=== PATIENT | male | born 1995 | race Caucasian/White ===

== ENCOUNTER 2020-03-08 13:51 | Emergency (ER) | payer SELFPAY ==
[~2020-03-08] VITALS: Ht 175.3 cm; Wt 99.8 kg
[2020-03-08 14:00] VITALS: BP_SYST 174
--- NOTE | 2020-03-08 15:29 | NUR ---
Patient to ER bed 07 to gown for evaluation. Side rails up.
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
--- NOTE | 2020-03-08 15:45 | NUR ---
Milady Ruiz at bedside examining patient
[2020-03-08] MEDS ORDERED: KETOROLAC TROMETHAMINE 30 MG VIAL IM ONE (16:00)
[2020-03-08 18:01] VITALS: BP_SYST 163
--- NOTE | 2020-03-08 18:01 | NUR ---
Patient given written and verbal discharge instructions and verbalizes understanding. ER MD discussed with patient the results and treatment provided. Patient in stable condition. ID arm band removed. Rx of Ibuprofen given. Patient educated on pain management and to follow up with PMD. Pain Scale 3/10. Opportunity for questions provided and answered. Medication side effect fact sheet provided.
== END 2020-03-08 18:01 | disposition home or self-care (01) ==
LOC: SED 13:51
DX: S82.831A Other fracture of upper and lower end of right fibula, initial encounter for closed fracture (principal); S01.01XA Laceration without foreign body of scalp, initial encounter; S51.011A Laceration without foreign body of right elbow, initial encounter; S20.211A Contusion of right front wall of thorax, initial encounter; S50.11XA Contusion of right forearm, initial encounter; V47.5XXA Car driver injured in collision with fixed or stationary object in traffic accident, initial encounter; Y93.89 Activity, other specified; Y92.89 Other specified places as the place of occurrence of the external cause; Y99.8 Other external cause status
CPT/HCPCS: 12002; 29505; 70450; 71046; 71110; 73090; 73590; 96372; 99284; J1885

== ENCOUNTER 2020-03-18 16:07 | Emergency (ER) | payer MEDICAID ==
[~2020-03-18] VITALS: Ht 177.8 cm; Wt 99.8 kg
--- NOTE | 2020-03-18 16:10 | NUR ---
Maribell cabrera in [facility] - 03/18/20 at [email or web address] Kang examining patient at bedside
[2020-03-18 16:14] VITALS: BP_SYST 147
--- NOTE | 2020-03-18 16:17 | NUR ---
Patient to ER bed H1 to gown for evaluation. Side rails up.
--- NOTE | 2020-03-18 16:18 | NUR ---
Dr Kang examining patient at bedside
--- NOTE | 2020-03-18 16:18 | NUR ---
Pt brought by self, A&Ox4, pt presents to ER for removal of 3 olivia on scalp, pt afebrile, no bleeding noted, skin pink and warm.
--- NOTE | 2020-03-18 16:21 | NUR ---
Dr Kang removing olivia at this time
--- NOTE | 2020-03-18 16:25 | NUR ---
Patient given written and verbal discharge instructions and verbalizes understanding. ER MD discussed with patient the results and treatment provided. Patient in stable condition. ID arm band removed. No Rx given. Patient educated on pain management and to follow up with PMD. Pain Scale 0/10. Opportunity for questions provided and answered. Medication side effect fact sheet provided.
[2020-03-18 16:26] VITALS: BP_SYST 142
== END 2020-03-18 16:25 | disposition home or self-care (01) ==
LOC: SED 16:07
DX: S01.01XD Laceration without foreign body of scalp, subsequent encounter (principal); X58.XXXD Exposure to other specified factors, subsequent encounter
CPT/HCPCS: 99281

== ENCOUNTER 2021-01-14 03:02 | Emergency (ER) | payer MEDICAID ==
[~2021-01-14] VITALS: Ht 175.3 cm; Wt 102.1 kg
[2021-01-14 03:13] VITALS: BP_SYST 153
[2021-01-14 03:59] LABS: BILIRUBIN,URINE NEGATIVE (NEGATIVE); BLOOD, URINE NEGATIVE (NEGATIVE); CLARITY/URINE CLEAR (CLEAR); COLOR,URINE YELLOW (YELLOW); GLUCOSE,URINE NEGATIVE (NEGATIVE); KETONES,URINE NEGATIVE (NEGATIVE); LEUKOCYTE ESTERASE ,URINE NEGATIVE (NEGATIVE); NITRITE, URINE NEGATIVE (NEGATIVE); PH,URINE 6.5 (5.0-8.0); PROTEIN URINE NEGATIVE (NEGATIVE); UROBILINOGEN,URINE 0.2 (0.2-1.0)
[2021-01-14 04:02] LABS: BASOPHILS # (AUTO) 0.1 K/uL (0.0-0.2); BASOPHILS % (AUTO) 1.4 % (0.0-2.0); EOSINOPHILS # (AUTO) 0.3 K/uL (0.0-0.4); EOSINOPHILS % (AUTO) 3.1 % (0.0-4.0); HEMATOCRIT 43.7 % (36-54); HEMOGLOBIN 14.8 g/dL (14.0-18.0); LYMPHOCYTES # (AUTO) 1.4 K/uL (1.0-5.5); LYMPHOCYTES % (AUTO) 15.4 % (20.5-51.5); MEAN CORPUSCULAR HEMOGLOBIN 31 pg (27-31); MEAN CORPUSCULAR HGB CONC 34 % (32-36); MEAN CORPUSCULAR VOLUME 90 fL (79.0-98.0); MONOCYTES # (AUTO) 0.8 K/uL (0.0-1.0); MONOCYTES % (AUTO) 8.8 % (1.7-9.3); NEUTROPHILS # (AUTO) 6.4 K/uL (1.8-7.7); NEUTROPHILS % (AUTO) 71.3 % (40.0-70.0); PLATELET COUNT (AUTO) 165 K/uL (130-430); RED BLOOD CELL COUNT(AUTO) 4.85 MIL/uL (4.2-6.2); RED CELL DISTRIBUTION WIDTH 14.6 % (9.0-15.0); WHITE BLOOD COUNT (AUTO) 8.9 K/uL (4.8-10.8)
[2021-01-14 04:15] LABS: ANION GAP 9 (5-15); CALCIUM 8.9 mg/dL (8.4-11.0); CHLORIDE 100 mmol/L (98-107); GLUCOSE 104 mg/dL (70-99); POTASSIUM 3.4 mmol/L (3.5-5.1); SODIUM SERUM 136 mmol/L (136-145); UREA NITROGEN, BLOOD 19 mg/dL (8-21)
[2021-01-14 04:23] LABS: ALANINE AMINOTRANSFERASE 100 U/L (12-78); ALBUMIN 4.3 g/dL (3.4-4.8); ASPARTATE AMINOTRANSFERASE 36 U/L (10-37); TOTAL BILIRUBIN 2.1 mg/dL (0.0-1.0)
[2021-01-14 04:27] LABS: C-REACTIVE PROTEIN QUANT < 0.2 mg/dL (0-0.5); GFR AFRICAN AMERICAN 133 mL/min (>90)
[2021-01-14] MEDS ORDERED: CYCL-10 PO (04:39)
[2021-01-14 04:42] LABS: ERYTHROCYTE SEDIMENTATION RATE 5 MM/HR (0-15)
[2021-01-14 04:46] VITALS: BP_SYST 153
== END 2021-01-14 04:46 | disposition home or self-care (01) ==
LOC: SED 03:02
DX: M54.6 Pain in thoracic spine (principal); M25.512 Pain in left shoulder; I10 Essential (primary) hypertension
CPT/HCPCS: 36415; 80053; 81003; 82962; 84484; 85025; 85651-TC; 86140; 93005; 99284

== ENCOUNTER 2021-07-27 03:35 | Emergency (ER) | payer OTHER, MEDICAID, SELFPAY ==
[~2021-07-27] VITALS: Ht 177.8 cm; Wt 108.0 kg
[~2021-07-27 03:35] MED LIST: CYCL10TA24 PO
[2021-07-27 03:50] VITALS: BP_SYST 156
[2021-07-27 04:16] VITALS: BP_SYST 152
== END 2021-07-27 04:16 | disposition home or self-care (01) ==
LOC: SED 03:35
DX: J02.9 Acute pharyngitis, unspecified (principal); R09.81 Nasal congestion; Z79.899 Other long term (current) drug therapy
CPT/HCPCS: 99281

== ENCOUNTER 2021-10-29 15:04 | Emergency (ER) | payer MEDICAID, OTHER, SELFPAY ==
[~2021-10-29] VITALS: Ht 175.3 cm; Wt 104.3 kg
--- NOTE | 2021-10-29 15:15 | NUR ---
Pt to Hallway #1. Pt c/o dropping 35lb weight on right big toe. There is 3/10 pain, swelling, and bleeding from right big toe nail. Pt is A&Ox4. Using crutches to ambulate. NKA. No known medical conditions. Bed in lowest position.
--- NOTE | 2021-10-29 15:20 | NUR ---
Dr. Finn at bedside.
[2021-10-29 15:31] VITALS: BP_SYST 132
--- NOTE | 2021-10-29 15:44 | NUR ---
Cleaned wound and placed wet to dry dressing.
[2021-10-29] MEDS ORDERED: BACITRACIN 1 GM OINT TP ONE (15:45)
[2021-10-29] MEDS ORDERED: IBUP-1971 PO (16:27)
[2021-10-29] MEDS ORDERED: HYDR-3917 PO (16:27)
--- NOTE | 2021-10-29 16:45 | NUR ---
Maribell cabrera in [facility] - 10/29/21 at 1647 by [email or web address] Dressed Helen Toe.Tx.w.Bacitracin & non-adherent gouze.
--- NOTE | 2021-10-29 16:45 | NUR ---
Right big toe dressed and pt has no c/o. VSS.
--- NOTE | 2021-10-29 16:47 | NUR ---
Correction: Dressed Left toe.
[2021-10-29 16:51] VITALS: BP_SYST 136
--- NOTE | 2021-10-29 16:52 | NUR ---
Patient given written and verbal discharge instructions and verbalizes understanding. ER MD discussed with patient the results and treatment provided. Patient in stable condition. ID arm band removed. Rx of Tad & Ibuprofen given. Patient educated on pain management and to follow up with PMD. Pain Scale . Opportunity for questions provided and answered. Medication side effect fact sheet provided.
== END 2021-10-29 16:52 | disposition home or self-care (01) ==
LOC: SED 15:04
DX: S90.112A Contusion of left great toe without damage to nail, initial encounter (principal); Z79.899 Other long term (current) drug therapy; W20.8XXA Other cause of strike by thrown, projected or falling object, initial encounter; Y93.89 Activity, other specified; Y92.89 Other specified places as the place of occurrence of the external cause; Y99.8 Other external cause status
CPT/HCPCS: 99283

== ENCOUNTER 2022-04-18 20:09 | Emergency (ER) | payer MEDICAID ==
[~2022-04-18] VITALS: Ht 177.8 cm; Wt 101.6 kg
[~2022-04-18 20:09] MED LIST changes: +HYDR-3917 PO; +IBUP-1971 PO
[2022-04-18 20:30] VITALS: BP_SYST 182
--- NOTE | 2022-04-18 22:12 | NUR ---
ER at bedside examining patient.
--- NOTE | 2022-04-18 22:40 | NUR ---
Patient to ER bed 5 to gown for evaluation. Side rails up. Report given to CRISTINA HECTOR(reg).
--- NOTE | 2022-04-18 22:45 | NUR ---
Assuming care for pt. Pt reports anxiety and sts he has a history of it but does not take meds. Denies any other med problems. Pt aaox4. RR even nonlabored. Vitals are WNL.
[2022-04-18] MEDS ORDERED: VIS25 PO (22:57)
[2022-04-18 23:32] VITALS: BP_SYST 122
== END 2022-04-18 23:34 | disposition home or self-care (01) ==
LOC: SED 20:09
DX: F41.9 Anxiety disorder, unspecified (principal); Z79.899 Other long term (current) drug therapy
CPT/HCPCS: 99283

== ENCOUNTER 2022-07-19 19:33 | Emergency (ER) | payer MEDICAID ==
[~2022-07-19] VITALS: Ht 177.8 cm; Wt 113.4 kg
[~2022-07-19 19:33] MED LIST changes: +VIS25 PO
[2022-07-19 19:43] VITALS: BP_SYST 182
[2022-07-19] MEDS ORDERED: VIS25 PO (23:25)
[2022-07-19 23:32] VITALS: BP_SYST 150
== END 2022-07-19 23:30 | disposition home or self-care (01) ==
LOC: SED 19:33
DX: F41.9 Anxiety disorder, unspecified (principal); Z79.899 Other long term (current) drug therapy
CPT/HCPCS: 99281

== ENCOUNTER 2022-12-08 20:35 | Emergency (ER) | payer OTHER, MEDICAID ==
[~2022-12-08] VITALS: Ht 175.3 cm; Wt 113.4 kg
[2022-12-08 20:49] VITALS: BP_SYST 208
--- NOTE | 2022-12-08 20:55 | NUR ---
Patient to ER bed HB1 to gown for evaluation. Side rails up. Report given to KRUNAL CELIS.
--- NOTE | 2022-12-08 20:55 | NUR ---
PT IS AA&OX4. AFEBRILE. NAD. RESP EVEN & UNALBORED. CAME IN [facility] HOME C/O MID CHEST 6/10 PRESSURE CHEST PAIN AFTER INHALING BLEACH A COUPLE OF HRS AGO. NKDA. -PMH. SURGICAL HX: APPENDECTOMY. AMBULATORY W/ STEADY GAIT. SAFE & HAZARD FREE ENVIRONEMNT PROVIDED.
--- NOTE | 2022-12-08 21:08 | NUR ---
Dr. Benitez at bedside examining the patient.
[2022-12-08 21:55] VITALS: BP_SYST 165
--- NOTE | 2022-12-08 22:00 | NUR ---
Patient given written and verbal discharge instructions and verbalizes understanding. ER MD discussed with patient the results and treatment provided. Patient in stable condition. ID arm band removed. NO Rx given. Patient educated on pain management and to follow up with PMD. Pain Scale 0/10. Opportunity for questions provided and answered. Medication side effect fact sheet provided.
== END 2022-12-08 22:03 | disposition home or self-care (01) ==
LOC: SED 20:35
DX: J68.9 Unspecified respiratory condition due to chemicals, gases, fumes and vapors (principal); F41.9 Anxiety disorder, unspecified; R07.9 Chest pain, unspecified; R06.02 Shortness of breath; Z79.899 Other long term (current) drug therapy
CPT/HCPCS: 71045; 93005; 99283

== ENCOUNTER 2023-10-02 00:43 | Inpatient (IN) | payer OTHER, MEDICAID ==
[~2023-10-02] VITALS: Ht 175.3 cm; Wt 126.3 kg
[2023-10-02 00:47] VITALS: BP_SYST 162; BP_SYST 192; PULSE 144; RESP 20; TEMP 98; O2SAT 96
[2023-10-02] MEDS ORDERED: AMMONIA 1 EA TOWELETTE INH ONE (01:00)
[2023-10-02 01:31] LABS: BASOPHILS # (AUTO) 0.1 K/uL (0.0-0.2); BASOPHILS % (AUTO) 0.8 % (0.0-2.0); EOSINOPHILS # (AUTO) 0.5 K/uL (0.0-0.4); EOSINOPHILS % (AUTO) 4.6 % (0.0-4.0); HEMATOCRIT 44.2 % (36-54); HEMOGLOBIN 15.2 g/dL (14.0-18.0); LYMPHOCYTES # (AUTO) 2.2 K/uL (1.0-5.5); LYMPHOCYTES % (AUTO) 20.4 % (20.5-51.5); MEAN CORPUSCULAR HEMOGLOBIN 33 pg (27-31); MEAN CORPUSCULAR HGB CONC 34 % (32-36); MEAN CORPUSCULAR VOLUME 96 fL (79.0-98.0); MONOCYTES # (AUTO) 0.8 K/uL (0.0-1.0); MONOCYTES % (AUTO) 7.9 % (1.7-9.3); NEUTROPHILS % (AUTO) 66.3 % (40.0-70.0); PLATELET COUNT (AUTO) 204 K/uL (130-430); RED CELL DISTRIBUTION WIDTH 14.9 % (9.0-15.0); WHITE BLOOD COUNT (AUTO) 10.5 K/uL (4.8-10.8)
[2023-10-02] MEDS: LORazepam 2 MG/ML VIAL IVP ONE (01:34)
[2023-10-02 01:39] LABS: PROTHROMBIN TIME 10.4 SECS (9.5-12.5)
[2023-10-02] MEDS ORDERED: MAGNESIUM SULFATE 1 GM/2 ML VIAL ONE (01:51)
[2023-10-02] MEDS ORDERED: FOLIC ACID 5 MG/ML VIAL IV ONE (01:51)
[2023-10-02] MEDS ORDERED: THIAMINE HCL 200 MG/2 ML VIAL ONE (01:51)
[2023-10-02 01:55] LABS: BILIRUBIN,DIRECT 0.7 mg/dL (0.0-0.3); CALCIUM 8.7 mg/dL (8.4-11.0); CREATININE 0.85 mg/dL (0.55-1.30); POTASSIUM 3.8 mmol/L (3.5-5.1); TOTAL BILIRUBIN 1.5 mg/dL (0.0-1.0)
[2023-10-02] MEDS ORDERED: MVI 10 ML VIAL IV ONE ×2 (01:56→01:58)
[2023-10-02] MEDS: FOLIC ACID 1 MG, THIAMINE HCL 100 MG, MAGNESIUM SULFATE 1 GM, MVI 10 ML in NACL 0.9% 1,... IV ONE (02:14)
[2023-10-02] MEDS: cloNIDine HCL 0.1 MG TABLET PO ONE (03:12)
[2023-10-02] MEDS: cloNIDine HCL 0.1 MG TABLET ONE (03:13)
[2023-10-02] MEDS ORDERED: FOLIC ACID 1 MG, THIAMINE HCL 100 MG, MAGNESIUM SULFATE 1 GM, MVI 10 ML in NACL 0.9% 1,... IV SCH (07:00)
[2023-10-02] MEDS: THIAMINE HCL 100 MG, MAGNESIUM SULFATE 1 GM in NS 100 ML IV SCH (09:40)
[2023-10-02] MEDS: FOLIC ACID 1 MG, MVI 10 ML in NACL 0.9% 1,000 ML IV SCH (10:30)
[2023-10-02] MEDS ORDERED: HYDROcodone/ACETAMIN 10-325 MG TAB PO PRN (10:45)
[2023-10-02] MEDS ORDERED: HYDROcodone/ACETAMIN 5-325 MG TAB (NORCO/ VICODIN) PO PRN (10:45)
[2023-10-02] MEDS ORDERED: ACETAMINOPHEN 325 MG TABLET PO PRN (10:45)
[2023-10-02] MEDS ORDERED: NALOXONE HCL 0.4 MG/ML AMP (NARCAN) IVP PRN ×2 (10:45)
[2023-10-02] MEDS ORDERED: ONDANSETRON HCL 4 MG/2 ML VIAL IVP PRN (10:45)
[2023-10-02 11:16] LABS: BASOPHILS # (AUTO) 0.1 K/uL (0.0-0.2); BASOPHILS % (AUTO) 0.6 % (0.0-2.0); EOSINOPHILS # (AUTO) 0.4 K/uL (0.0-0.4); EOSINOPHILS % (AUTO) 4.6 % (0.0-4.0); LYMPHOCYTES # (AUTO) 1.4 K/uL (1.0-5.5); LYMPHOCYTES % (AUTO) 15.4 % (20.5-51.5); MEAN CORPUSCULAR HEMOGLOBIN 33 pg (27-31); MEAN CORPUSCULAR HGB CONC 34 % (32-36); MEAN CORPUSCULAR VOLUME 96 fL (79.0-98.0); MONOCYTES # (AUTO) 0.9 K/uL (0.0-1.0); NEUTROPHILS # (AUTO) 6.4 K/uL (1.8-7.7); NEUTROPHILS % (AUTO) 69.4 % (40.0-70.0); PLATELET COUNT (AUTO) 181 K/uL (130-430); RED BLOOD CELL COUNT(AUTO) 4.29 MIL/uL (4.2-6.2); RED CELL DISTRIBUTION WIDTH 14.9 % (9.0-15.0); WHITE BLOOD COUNT (AUTO) 9.2 K/uL (4.8-10.8)
[2023-10-02] MEDS: LORazepam 2 MG/ML VIAL IVP PRN (11:54)
[2023-10-02 11:56] LABS: ALBUMIN 3.4 g/dL (3.4-4.8); CREATININE 0.75 mg/dL (0.55-1.30); POTASSIUM 3.8 mmol/L (3.5-5.1); TOTAL BILIRUBIN 1.9 mg/dL (0.0-1.0); TOTAL PROTEIN, SERUM 7.9 g/dL (6.4-8.3)
[2023-10-02] MEDS: NORMAL SALINE 5 ML DISP.SYRIN IVF SCH (14:00)
[2023-10-02] MEDS ORDERED: PANTOPRAZOLE SODIUM 40 MG/VIAL (PROTONIX) ONE (15:54)
[2023-10-02] MEDS: PANTOPRAZOLE SODIUM 40 MG/VIAL (PROTONIX) IVP ONE (16:05)
[2023-10-02 16:42] LABS: BARBITURATE, URINE NEGATIVE (NEG <=200); BENZODIAZEPINE, URINE POSITIVE (NEG <=150); CANNABINOID, URINE NEGATIVE (NEG <=50); COCAINE, URINE NEGATIVE (NEG <=150); METHAMPHETAMINES SCREEN,URINE NEGATIVE (NEG <=500); OPIATE, URINE NEGATIVE (NEG <=100); PHENCYCLIDINE SCREEN,URINE NEGATIVE (NEG <=25); UR TRICYCLIC ANTIDEPRESSANTS NEGATIVE (NEG <=300); URINE AMPHETAMINE NEGATIVE (NEG <=500); URINE METHADONE NEGATIVE (NEG <=200); URINE OXYCODONE SCREEN NEGATIVE (NEG <=100)
[2023-10-02 19:50] VITALS: BP_SYST 156; PULSE 85; RESP 20; TEMP 97.4; O2SAT 95
[2023-10-02 20:40] VITALS: BP_SYST 156; PULSE 85; RESP 20; TEMP 97.4; O2SAT 95
[2023-10-03 00:07] VITALS: BP_SYST 153; PULSE 86; RESP 18; TEMP 96.9; O2SAT 97
[2023-10-03 06:16] LABS: BASOPHILS # (AUTO) 0.1 K/uL (0.0-0.2); BASOPHILS % (AUTO) 0.8 % (0.0-2.0); EOSINOPHILS # (AUTO) 0.6 K/uL (0.0-0.4); EOSINOPHILS % (AUTO) 6.4 % (0.0-4.0); HEMATOCRIT 42.4 % (36-54); HEMOGLOBIN 14.6 g/dL (14.0-18.0); LYMPHOCYTES # (AUTO) 1.6 K/uL (1.0-5.5); LYMPHOCYTES % (AUTO) 17.5 % (20.5-51.5); MEAN CORPUSCULAR HEMOGLOBIN 33 pg (27-31); MEAN CORPUSCULAR HGB CONC 34 % (32-36); MEAN CORPUSCULAR VOLUME 95 fL (79.0-98.0); MONOCYTES # (AUTO) 0.9 K/uL (0.0-1.0); NEUTROPHILS # (AUTO) 5.9 K/uL (1.8-7.7); NEUTROPHILS % (AUTO) 65.3 % (40.0-70.0); PLATELET COUNT (AUTO) 178 K/uL (130-430); RED BLOOD CELL COUNT(AUTO) 4.45 MIL/uL (4.2-6.2); RED CELL DISTRIBUTION WIDTH 15.2 % (9.0-15.0)
[2023-10-03 06:24] LABS: ALBUMIN 3.5 g/dL (3.4-4.8); CALCIUM 9.2 mg/dL (8.4-11.0); CREATININE 0.73 mg/dL (0.55-1.30); POTASSIUM 3.8 mmol/L (3.5-5.1); TOTAL BILIRUBIN 2.3 mg/dL (0.0-1.0); TOTAL PROTEIN, SERUM 7.9 g/dL (6.4-8.3)
[2023-10-03 06:31] LABS: TOTAL IRON BIND. CAPACITY 386 ug/dL (250-450)
[2023-10-03 08:24] VITALS: BP_SYST 173; PULSE 102; RESP 20; TEMP 98.7; O2SAT 97
[2023-10-03] MEDS: PANTOPRAZOLE SODIUM 40 MG/VIAL (PROTONIX) IVP SCH (09:00)
[2023-10-03] MEDS ORDERED: cloNIDine HCL 0.1 MG TABLET PO PRN (10:15)
[2023-10-03 11:40] VITALS: O2SAT 97
[2023-10-03 12:10] VITALS: BP_SYST 159; PULSE 97; RESP 18; TEMP 97.3; O2SAT 97
[2023-10-03] MEDS: CARVEDILOL 12.5 MG TABLET (COREG) PO ONE (12:17)
[2023-10-03 16:50] VITALS: BP_SYST 137; PULSE 82; RESP 17; TEMP 98.2; O2SAT 96
[2023-10-03 19:50] VITALS: BP_SYST 128; PULSE 80; RESP 20; TEMP 97.9; O2SAT 98
[2023-10-03] MEDS: CARVEDILOL 12.5 MG TABLET (COREG) PO SCH (21:49)
[2023-10-04 00:36] VITALS: BP_SYST 149; RESP 18; TEMP 98; O2SAT 96
[2023-10-04 06:05] LABS: BASOPHILS # (AUTO) 0.1 K/uL (0.0-0.2); BASOPHILS % (AUTO) 0.7 % (0.0-2.0); EOSINOPHILS # (AUTO) 0.7 K/uL (0.0-0.4); EOSINOPHILS % (AUTO) 7.2 % (0.0-4.0); HEMATOCRIT 42.5 % (36-54); HEMOGLOBIN 14.5 g/dL (14.0-18.0); LYMPHOCYTES # (AUTO) 1.6 K/uL (1.0-5.5); LYMPHOCYTES % (AUTO) 16.1 % (20.5-51.5); MEAN CORPUSCULAR HEMOGLOBIN 33 pg (27-31); MEAN CORPUSCULAR HGB CONC 34 % (32-36); MEAN CORPUSCULAR VOLUME 96 fL (79.0-98.0); MONOCYTES # (AUTO) 0.9 K/uL (0.0-1.0); MONOCYTES % (AUTO) 9.3 % (1.7-9.3); NEUTROPHILS # (AUTO) 6.4 K/uL (1.8-7.7); NEUTROPHILS % (AUTO) 66.7 % (40.0-70.0); PLATELET COUNT (AUTO) 168 K/uL (130-430); RED BLOOD CELL COUNT(AUTO) 4.41 MIL/uL (4.2-6.2); RED CELL DISTRIBUTION WIDTH 14.7 % (9.0-15.0); WHITE BLOOD COUNT (AUTO) 9.6 K/uL (4.8-10.8)
[2023-10-04 08:00] VITALS: BP_SYST 131; PULSE 80; RESP 20; TEMP 97.7; O2SAT 96
[2023-10-04 08:06] LABS: ANTI NUCLEAR AB WITH REFLEX Negative (Negative)
[2023-10-04 08:23] LABS: ALBUMIN 3.6 g/dL (3.4-4.8); CALCIUM 8.4 mg/dL (8.4-11.0); CREATININE 0.66 mg/dL (0.55-1.30); POTASSIUM 3.9 mmol/L (3.5-5.1); TOTAL BILIRUBIN 2.5 mg/dL (0.0-1.0); TOTAL PROTEIN, SERUM 8.1 g/dL (6.4-8.3)
[2023-10-04 13:02] LABS: HEPATITIS A AB, IgM Negative (Negative); HEPATITIS B CORE AB, IgM Negative (Negative); HEPATITIS B SURFACE AG Negative (Negative); HEPATITIS C VIRUS AB Non Reactive (Non Reactive)
[2023-10-04 16:00] VITALS: BP_SYST 129; PULSE 74; RESP 18; TEMP 98; O2SAT 97
[2023-10-04 20:00] VITALS: BP_SYST 147; PULSE 77; RESP 18; TEMP 97; O2SAT 98
[2023-10-05 00:05] VITALS: BP_SYST 134; PULSE 79; RESP 18; TEMP 98.3
[2023-10-05 08:24] VITALS: BP_SYST 145; PULSE 87; RESP 18; TEMP 97.8; O2SAT 96
[2023-10-05 08:33] LABS: ALBUMIN 3.7 g/dL (3.4-4.8); BILIRUBIN,DIRECT 1.1 mg/dL (0.0-0.3); TOTAL BILIRUBIN 2.6 mg/dL (0.0-1.0); TOTAL PROTEIN, SERUM 8.3 g/dL (6.4-8.3)
[2023-10-05] MEDS ORDERED: COR12.5 PO (09:56)
[2023-10-05] MEDS ORDERED: MULT-1117 PO (09:56)
[2023-10-05] MEDS ORDERED: THIA100T70 PO (09:56)
[2023-10-05] MEDS ORDERED: PRO40 PO (09:56)
[2023-10-05] MEDS ORDERED: FOLI-43 PO (09:56)
[2023-10-05 15:06] LABS: ANTI-SMOOTH MUSCLE AB 3 Units (0-19)
[2023-10-05 15:57] VITALS: BP_SYST 146; PULSE 68; RESP 18; TEMP 98.1; O2SAT 97
[2023-10-05 15:58] VITALS: BP_SYST 146; PULSE 68; RESP 18; TEMP 98.1; O2SAT 97
== END 2023-10-05 16:30 | disposition home or self-care (01) | DRG 433 ==
LOC: SED 00:43 → SMU 02:24
PROVIDERS: ADMIT Preventive Medicine Preventive Medicine/Occupational Environmental Medicine; ATTEND Preventive Medicine Preventive Medicine/Occupational Environmental Medicine
DX: K70.10 Alcoholic hepatitis without ascites (principal); E72.20 Disorder of urea cycle metabolism, unspecified; F10.139 Alcohol abuse with withdrawal, unspecified; Z68.41 Body mass index [BMI] 40.0-44.9, adult; F41.9 Anxiety disorder, unspecified; Y90.9 Presence of alcohol in blood, level not specified; R74.01 Elevation of levels of liver transaminase levels; F17.200 Nicotine dependence, unspecified, uncomplicated; R73.9 Hyperglycemia, unspecified; I10 Essential (primary) hypertension; K76.0 Fatty (change of) liver, not elsewhere classified; E80.6 Other disorders of bilirubin metabolism; E66.01 Morbid (severe) obesity due to excess calories; Z79.899 Other long term (current) drug therapy; Z90.49 Acquired absence of other specified parts of digestive tract
CPT/HCPCS: 36415; 76376; 76700; 80048; 80053; 80074; 80076; 80307; 82140; 83516; 83540; 83550; 83690; 85025; 85610; 85730; 86038; 93005; 99285; C9113; J2060; J3411; J3475; J3490; J7030; Q9967

== ENCOUNTER 2023-11-02 14:50 | Emergency (ER) | payer OTHER, MEDICAID ==
[~2023-11-02] VITALS: Ht 175.3 cm; Wt 115.7 kg
[2023-11-02 14:50] VITALS: BP_SYST 135; PULSE 105; RESP 20; TEMP 101.5; O2SAT 96
[~2023-11-02 14:50] MED LIST changes: +COR12.5 PO; +FOLI-43 PO; +MULT-1117 PO; +PRO40 PO; +THIA100T70 PO
[2023-11-02] MEDS ORDERED: IBUPROFEN 800 MG TABLET ONE (15:06)
[2023-11-02 16:32] LABS: BASOPHILS # (AUTO) 0.1 K/uL (0.0-0.2); BASOPHILS % (AUTO) 0.5 % (0.0-2.0); EOSINOPHILS # (AUTO) 0.5 K/uL (0.0-0.4); EOSINOPHILS % (AUTO) 4.5 % (0.0-4.0); HEMATOCRIT 42.3 % (36-54); HEMOGLOBIN 14.7 g/dL (14.0-18.0); LYMPHOCYTES # (AUTO) 1.7 K/uL (1.0-5.5); LYMPHOCYTES % (AUTO) 15.2 % (20.5-51.5); MEAN CORPUSCULAR HEMOGLOBIN 32 pg (27-31); MEAN CORPUSCULAR HGB CONC 35 % (32-36); MEAN CORPUSCULAR VOLUME 93 fL (79.0-98.0); MONOCYTES # (AUTO) 1.2 K/uL (0.0-1.0); MONOCYTES % (AUTO) 11.5 % (1.7-9.3); NEUTROPHILS # (AUTO) 7.4 K/uL (1.8-7.7); NEUTROPHILS % (AUTO) 68.3 % (40.0-70.0); PLATELET COUNT (AUTO) 173 K/uL (130-430); RED BLOOD CELL COUNT(AUTO) 4.55 MIL/uL (4.2-6.2); RED CELL DISTRIBUTION WIDTH 14.1 % (9.0-15.0); WHITE BLOOD COUNT (AUTO) 10.9 K/uL (4.8-10.8)
[2023-11-02 16:38] LABS: CREATININE 1.03 mg/dL (0.55-1.30); POTASSIUM 4.1 mmol/L (3.5-5.1)
[2023-11-02 17:11] LABS: ALBUMIN 3.5 g/dL (3.4-4.8); BILIRUBIN,DIRECT 0.4 mg/dL (0.0-0.3); TOTAL BILIRUBIN 1.5 mg/dL (0.0-1.0); TOTAL PROTEIN, SERUM 8.2 g/dL (6.4-8.3)
[2023-11-02] MEDS ORDERED: OMEP20CA15 PO (17:48)
[2023-11-02 17:56] VITALS: BP_SYST 132; PULSE 100; RESP 17; TEMP 100.9; O2SAT 96
== END 2023-11-02 17:55 | disposition home or self-care (01) ==
LOC: SED 14:50
DX: K29.70 Gastritis, unspecified, without bleeding (principal); R10.13 Epigastric pain; Z79.899 Other long term (current) drug therapy
CPT/HCPCS: 36415; 80048; 80076; 82150; 83605; 83615; 83690; 85025; 99284

== ENCOUNTER 2023-12-02 13:04 | Emergency (ER) | payer OTHER, MEDICAID ==
[~2023-12-02] VITALS: Ht 175.3 cm; Wt 110.2 kg
[~2023-12-02 13:04] MED LIST changes: +OMEP20CA15 PO
[2023-12-02 13:36] VITALS: BP_SYST 141; PULSE 105; RESP 18; TEMP 99.9; O2SAT 95
[2023-12-02] MEDS: PANTOPRAZOLE SODIUM 40 MG TAB PO ONE (14:28)
[2023-12-02] MEDS: KETOROLAC TROMETHAMINE 60 MG/2 ML VIAL IM ONE (14:28)
[2023-12-02 14:32] LABS: BILIRUBIN,URINE NEGATIVE (NEGATIVE); BLOOD, URINE NEGATIVE (NEGATIVE); COLOR,URINE YELLOW (YELLOW); GLUCOSE,URINE NEGATIVE (NEGATIVE); KETONES,URINE NEGATIVE (NEGATIVE); LEUKOCYTE ESTERASE ,URINE NEGATIVE (NEGATIVE); NITRITE, URINE NEGATIVE (NEGATIVE); PH,URINE 6.5 (5.0-8.0); PROTEIN URINE NEGATIVE (NEGATIVE); UROBILINOGEN,URINE 0.2 (0.2-1.0)
[2023-12-02 14:36] LABS: CLARITY/URINE SLIGHTLY HAZY (CLEAR)
[2023-12-02 14:44] LABS: BASOPHILS # (AUTO) 0.1 K/uL (0.0-0.2); EOSINOPHILS # (AUTO) 0.2 K/uL (0.0-0.4); EOSINOPHILS % (AUTO) 1.8 % (0.0-4.0); HEMATOCRIT 39.7 % (36-54); HEMOGLOBIN 13.8 g/dL (14.0-18.0); LYMPHOCYTES # (AUTO) 1.3 K/uL (1.0-5.5); LYMPHOCYTES % (AUTO) 12.9 % (20.5-51.5); MEAN CORPUSCULAR HEMOGLOBIN 32 pg (27-31); MEAN CORPUSCULAR HGB CONC 35 % (32-36); MEAN CORPUSCULAR VOLUME 91 fL (79.0-98.0); MONOCYTES # (AUTO) 1.2 K/uL (0.0-1.0); MONOCYTES % (AUTO) 11.6 % (1.7-9.3); NEUTROPHILS # (AUTO) 7.6 K/uL (1.8-7.7); NEUTROPHILS % (AUTO) 72.7 % (40.0-70.0); PLATELET COUNT (AUTO) 155 K/uL (130-430); RED BLOOD CELL COUNT(AUTO) 4.36 MIL/uL (4.2-6.2); WHITE BLOOD COUNT (AUTO) 10.4 K/uL (4.8-10.8)
[2023-12-02 14:59] LABS: CALCIUM 9.1 mg/dL (8.4-11.0); CREATININE 0.98 mg/dL (0.55-1.30); POTASSIUM 4.1 mmol/L (3.5-5.1)
[2023-12-02 15:03] LABS: ALBUMIN 3.6 g/dL (3.4-4.8); BILIRUBIN,DIRECT 0.5 mg/dL (0.0-0.3); TOTAL PROTEIN, SERUM 8.3 g/dL (6.4-8.3)
[2023-12-02] MEDS ORDERED: ONDA-8 TL (15:41)
[2023-12-02] MEDS ORDERED: OMEP40CA20 PO (15:41)
[2023-12-02 15:52] VITALS: BP_SYST 163; PULSE 95; RESP 18; TEMP 99.6; O2SAT 99
== END 2023-12-02 15:52 | disposition home or self-care (01) ==
LOC: SED 13:04
DX: K29.20 Alcoholic gastritis without bleeding (principal); F41.9 Anxiety disorder, unspecified
CPT/HCPCS: 99285; 76705; 80076; 80048; 81001; 83690; 85025; 36415; 96372; 81003; J1885

== ENCOUNTER 2023-12-11 19:28 | Emergency (ER) | payer OTHER, MEDICAID ==
[~2023-12-11] VITALS: Ht 175.3 cm; Wt 113.4 kg
[~2023-12-11 19:28] MED LIST changes: +OMEP40CA20 PO; +ONDA-8 TL
[2023-12-11 19:43] VITALS: BP_SYST 157; PULSE 86; RESP 18; TEMP 98.6; O2SAT 97
[2023-12-11] MEDS ORDERED: CHLO25CA11 PO (20:18)
[2023-12-11] MEDS ORDERED: HYDR30CR79 TP (20:18)
[2023-12-11 20:30] VITALS: TEMP 98.6; O2SAT 98
[2023-12-11 20:40] VITALS: BP_SYST 157; PULSE 78; RESP 20
== END 2023-12-11 20:30 | disposition home or self-care (01) ==
LOC: SED 19:28
DX: K64.9 Unspecified hemorrhoids (principal); F10.939 Alcohol use, unspecified with withdrawal, unspecified; F17.200 Nicotine dependence, unspecified, uncomplicated; I10 Essential (primary) hypertension; K21.9 Gastro-esophageal reflux disease without esophagitis; F41.9 Anxiety disorder, unspecified; Z90.49 Acquired absence of other specified parts of digestive tract; Y90.9 Presence of alcohol in blood, level not specified
CPT/HCPCS: 99283

== ENCOUNTER 2023-12-21 15:16 | Emergency (ER) | payer OTHER, MEDICAID ==
[~2023-12-21] VITALS: Ht 175.3 cm; Wt 113.4 kg
[2023-12-21 15:16] VITALS: BP_SYST 180; PULSE 114; RESP 19; TEMP 98.1; O2SAT 96
[~2023-12-21 15:16] MED LIST changes: +CHLO25CA11 PO; +HYDR30CR79 TP
[2023-12-21 16:18] LABS: BASOPHILS % (AUTO) 0.7 % (0.0-2.0); EOSINOPHILS # (AUTO) 0.1 K/uL (0.0-0.4); EOSINOPHILS % (AUTO) 1.2 % (0.0-4.0); HEMATOCRIT 41.4 % (36-54); HEMOGLOBIN 14.3 g/dL (14.0-18.0); LYMPHOCYTES # (AUTO) 1.1 K/uL (1.0-5.5); LYMPHOCYTES % (AUTO) 16.9 % (20.5-51.5); MEAN CORPUSCULAR HEMOGLOBIN 31 pg (27-31); MEAN CORPUSCULAR HGB CONC 34 % (32-36); MEAN CORPUSCULAR VOLUME 90 fL (79.0-98.0); MONOCYTES # (AUTO) 0.7 K/uL (0.0-1.0); MONOCYTES % (AUTO) 10.7 % (1.7-9.3); NEUTROPHILS # (AUTO) 4.5 K/uL (1.8-7.7); NEUTROPHILS % (AUTO) 70.5 % (40.0-70.0); PLATELET COUNT (AUTO) 180 K/uL (130-430); RED BLOOD CELL COUNT(AUTO) 4.63 MIL/uL (4.2-6.2); RED CELL DISTRIBUTION WIDTH 15.5 % (9.0-15.0); WHITE BLOOD COUNT (AUTO) 6.4 K/uL (4.8-10.8)
[2023-12-21] MEDS: NACL 0.9% 2,000 ML IV ONE (16:41)
[2023-12-21 16:55] LABS: ALANINE AMINOTRANSFERASE 39 U/L (12-78); ALBUMIN 3.8 g/dL (3.4-4.8); AMYLASE 70 U/L (0-100); ANION GAP 11 (5-15); ASPARTATE AMINOTRANSFERASE 27 U/L (10-37); BILIRUBIN,DIRECT 0.5 mg/dL (0.0-0.3); CALCIUM 8.6 mg/dL (8.4-11.0); CARBON DIOXIDE 26 mmol/L (23-29); CHLORIDE 102 mmol/L (98-107); CREATININE 0.95 mg/dL (0.55-1.30); GFR AFRICAN AMERICAN 122 mL/min (>90); GFR NON AFRICAN-AMERICAN 101 mL/min (>90); GLUCOSE 125 mg/dL (74-106); LIPASE 42 U/L (16-77); POTASSIUM 3.8 mmol/L (3.5-5.1); SODIUM SERUM 139 mmol/L (136-145); TOTAL BILIRUBIN 2.8 mg/dL (0.0-1.0); TOTAL PROTEIN, SERUM 8.3 g/dL (6.4-8.3); UREA NITROGEN, BLOOD 13 mg/dL (8-21)
[2023-12-21 16:57] LABS: ALCOHOL, BLOOD < 3 mg/dL (<10)
[2023-12-21] MEDS: LORazepam 2 MG/ML VIAL IVP ONE (17:04)
[2023-12-21 17:33] LABS: ACETONE, SERUM NEGATIVE (NEGATIVE)
[2023-12-21 17:39] LABS: PROTHROMBIN TIME 10.5 SECS (9.5-12.5)
[2023-12-21] MEDS ORDERED: OMEP-268 PO (18:29)
[2023-12-21] MEDS ORDERED: LORA-259 PO (18:29)
[2023-12-21 19:03] VITALS: BP_SYST 153; PULSE 87; RESP 16; TEMP 97.9; O2SAT 92
== END 2023-12-21 19:00 | disposition home or self-care (01) ==
LOC: SED 15:16
DX: F10.939 Alcohol use, unspecified with withdrawal, unspecified (principal); F41.9 Anxiety disorder, unspecified; K21.9 Gastro-esophageal reflux disease without esophagitis; I10 Essential (primary) hypertension; Y90.0 Blood alcohol level of less than 20 mg/100 ml
CPT/HCPCS: 99285; 74176; 96374; 96361; 80076; 80048; 82009; 82150; 83690; 85025; 85610; 85730; 36415; 83605; G0482; J2060; J7030

== ENCOUNTER 2023-12-23 23:58 | Emergency (ER) | payer OTHER, MEDICAID ==
[~2023-12-23] VITALS: Ht 175.3 cm; Wt 108.9 kg
[~2023-12-23 23:58] MED LIST changes: +LORA-259 PO; +OMEP-268 PO
[2023-12-24 00:02] VITALS: BP_SYST 185; PULSE 106; RESP 20; TEMP 99.2; O2SAT 97
[2023-12-24 00:24] LABS: BILIRUBIN,URINE NEGATIVE (NEGATIVE); BLOOD, URINE NEGATIVE (NEGATIVE); CLARITY/URINE CLEAR (CLEAR); COLOR,URINE YELLOW (YELLOW); GLUCOSE,URINE NEGATIVE (NEGATIVE); KETONES,URINE NEGATIVE (NEGATIVE); LEUKOCYTE ESTERASE ,URINE NEGATIVE (NEGATIVE); NITRITE, URINE NEGATIVE (NEGATIVE); PH,URINE 6.5 (5.0-8.0); PROTEIN URINE NEGATIVE (NEGATIVE)
[2023-12-24 00:39] LABS: BASOPHILS # (AUTO) 0.1 K/uL (0.0-0.2); BASOPHILS % (AUTO) 0.8 % (0.0-2.0); EOSINOPHILS # (AUTO) 0.7 K/uL (0.0-0.4); HEMOGLOBIN 13.9 g/dL (14.0-18.0); LYMPHOCYTES # (AUTO) 2.7 K/uL (1.0-5.5); LYMPHOCYTES % (AUTO) 24.7 % (20.5-51.5); MEAN CORPUSCULAR HEMOGLOBIN 31 pg (27-31); MEAN CORPUSCULAR HGB CONC 34 % (32-36); MEAN CORPUSCULAR VOLUME 90 fL (79.0-98.0); MONOCYTES # (AUTO) 0.9 K/uL (0.0-1.0); MONOCYTES % (AUTO) 8.7 % (1.7-9.3); NEUTROPHILS # (AUTO) 6.5 K/uL (1.8-7.7); NEUTROPHILS % (AUTO) 59.8 % (40.0-70.0); PLATELET COUNT (AUTO) 157 K/uL (130-430); RED BLOOD CELL COUNT(AUTO) 4.53 MIL/uL (4.2-6.2); RED CELL DISTRIBUTION WIDTH 15.4 % (9.0-15.0); WHITE BLOOD COUNT (AUTO) 10.8 K/uL (4.8-10.8)
[2023-12-24 00:59] LABS: ALBUMIN 3.8 g/dL (3.4-4.8); BILIRUBIN,DIRECT 0.4 mg/dL (0.0-0.3); CALCIUM 8.9 mg/dL (8.4-11.0); CREATININE 0.94 mg/dL (0.55-1.30); POTASSIUM 3.9 mmol/L (3.5-5.1); TOTAL BILIRUBIN 1.5 mg/dL (0.0-1.0); TOTAL PROTEIN, SERUM 8.4 g/dL (6.4-8.3)
[2023-12-24] MEDS ORDERED: IBUP-1969 PO (01:13)
[2023-12-24] MEDS: IBUPROFEN 600 MG TABLET PO ONE (01:32)
[2023-12-24 01:40] VITALS: BP_SYST 156; PULSE 97; RESP 18; TEMP 98.9; O2SAT 99
== END 2023-12-24 01:35 | disposition home or self-care (01) ==
LOC: SED 23:58
DX: R10.31 Right lower quadrant pain (principal); I10 Essential (primary) hypertension; K21.9 Gastro-esophageal reflux disease without esophagitis; F41.9 Anxiety disorder, unspecified; F17.200 Nicotine dependence, unspecified, uncomplicated; F10.90 Alcohol use, unspecified, uncomplicated
CPT/HCPCS: 36415; 80048; 80076; 81001; 81003; 85025; 99283